=== PATIENT | male | born 1980 | race Two or more races ===

== ENCOUNTER 2018-11-21 23:49 | Emergency (ER) | payer MEDICAID, OTHER ==
[~2018-11-21] VITALS: Ht 162.6 cm; Wt 88.5 kg
[2018-11-22] MEDS ORDERED: ASPIRIN 81 MG TAB.CHEW ONE (00:08)
--- NOTE | 2018-11-22 00:13 | NUR ---
BIBSELF FROM HOME. TO ER BED 1. AAOX4. NAD NOTED, BREATHING EVEN ADN UNLABORED. AMBULATORY. C/O SOB, NUMBESS ON BOTH UPPER EXTREMETIES AND CP. UPON ASSESSMENT, NO S/S OF CC NOTED. MD AT BEDSIDE FOR EVAL. ORDERS RECEIVED
--- NOTE | 2018-11-22 00:15 | NUR ---
IV LINE OBTAINED ON R AC 18G/ BLOOD DRAWN AND GIVEN TO [employer] AT BEDSIDE
[2018-11-22 00:17] LABS: BASOPHILS # (AUTO) 0.1 /CMM (0.0-0.2); BASOPHILS % (AUTO) 0.7 % (0.0-2.0); EOSINOPHILS % (AUTO) 2.5 % (0.0-6.0); HEMATOCRIT 45 % (39-51); HEMOGLOBIN 15.4 g/dL (13.5-17.5); LYMPHOCYTES # (AUTO) 3.2 /CMM (0.8-4.8); LYMPHOCYTES % (AUTO) 41.8 % (20.0-44.0); MEAN CORPUSCULAR HGB CONC 34 g/dl (31.0-36.0); MEAN CORPUSCULAR VOLUME 89 fL (80-96); MONOCYTES # (AUTO) 0.6 /CMM (0.1-1.30); MONOCYTES % (AUTO) 7.5 % (2.0-12.0); NEUTROPHILS # (AUTO) 3.6 /CMM (1.8-8.9); NEUTROPHILS % (AUTO) 47.5 % (43.0-81.0); PLATELET COUNT (AUTO) 265 /CMM (150-450); RED BLOOD CELL COUNT(AUTO) 5.03 MIL/uL (4.5-6.0); WHITE BLOOD COUNT (AUTO) 7.5 K/uL (4.3-11.0)
--- NOTE | 2018-11-22 00:20 | NUR ---
RADIOLOGY AT BEDSIDE
[2018-11-22] MEDS ORDERED: IOHEXOL-350 100 ML VIAL IV ONE (00:27)
[2018-11-22] MEDS ORDERED: IV NS 0.9% 250 ML IV ONE (00:27)
[2018-11-22] MEDS ORDERED: CT SWABBABLE VALVE TRANS SET 1 EA INFUS.SET MC ONE (00:27)
[2018-11-22] MEDS ORDERED: ASPIRIN 81 MG TAB.CHEW PO ONE (00:30)
[2018-11-22 00:40] LABS: B-TYPE NATRIURETIC PEPTIDE 54 PG/ML (0-125); CALCIUM, SERUM 9.7 mg/dL (8.5-10.1); CARBON DIOXIDE 27 mmol/L (21-32); CHLORIDE 105 mmol/L (98-107); CREATININE 1.1 mg/dL (0.6-1.3); GLUCOSE 98 mg/dL (74-106); POTASSIUM 3.9 mmol/L (3.5-5.1); SODIUM SERUM 141 mmol/L (136-145); UREA NITROGEN, BLOOD 17 mg/dL (7-18)
[2018-11-22 02:08] VITALS: BP 119/59
--- NOTE | 2018-11-22 02:09 | NUR ---
IV removed. Catheter intact and site benign. Pressure and 4x4 applied to site. No bleeding noted. Patient discharged to home in stable condition. Written and verbal after care instructions given. Patient verbalizes understanding of instruction. Pt ambulatory with a steady gait
== END 2018-11-22 02:09 | disposition home or self-care (01) ==
LOC: ER 23:52
DX: R06.02 Shortness of breath (principal); R07.89 Other chest pain; Z87.891 Personal history of nicotine dependence; Z98.890 Other specified postprocedural states
CPT/HCPCS: 36415; 71045; 71275; 80048; 83880; 84484; 85025; 93005 ×2; 99284; J7050; Q9967

== ENCOUNTER 2019-12-12 19:27 | Emergency (ER) | payer SELFPAY ==
[~2019-12-12] VITALS: Ht 167.6 cm; Wt 88.5 kg
[2019-12-12 20:10] VITALS: BP 125/77
--- NOTE | 2019-12-12 20:11 | NUR ---
URINE COLLECTED AND SENT TO LAB
--- NOTE | 2019-12-12 20:25 | NUR ---
CALLED PT TO BE PLACED IN ROOM, NO ANSWER
[2019-12-12] MEDS ORDERED: KETOROLAC TROMETHAMINE INJ 30 MG/ML VIAL ONE (20:59)
[2019-12-12] MEDS ORDERED: KETOROLAC TROMETHAMINE INJ 60 MG/2 ML VIAL IM ONE (21:00)
== END 2019-12-12 21:13 | disposition home or self-care (01) ==
LOC: ER 19:30
DX: S33.5XXA Sprain of ligaments of lumbar spine, initial encounter (principal); M54.41 Lumbago with sciatica, right side; Z98.890 Other specified postprocedural states; X50.1XXA Overexertion from prolonged static or awkward postures, initial encounter; Y93.89 Activity, other specified; Y92.89 Other specified places as the place of occurrence of the external cause; Y99.8 Other external cause status
CPT/HCPCS: 96372; 99283; J1885

== ENCOUNTER 2020-07-29 10:59 | Emergency (ER) | payer SELFPAY ==
[~2020-07-29] VITALS: Ht 162.6 cm; Wt 88.5 kg
--- NOTE | 2020-07-29 11:10 | NUR ---
BIB SELF C/O BLOOD IN THE STOOL STARTED LAST NIGHT. THE PATIENT C/O ABDOMINAL PAIN 05/21. DENIES NAUSEA/VOMITING. ABDOMEN SOFT AND NON-DISTENDED. VITAL SIGNS WNL. WARM BLANKET PROVIDED FOR COMFORT. WILL CONTINUE TO MONITOR THE PATIENT.
[2020-07-29 12:39] LABS: BASOPHILS % (AUTO) 0.6 % (0.0-2.0); EOSINOPHILS % (AUTO) 2.5 % (0.0-6.0); HEMATOCRIT 44 % (39-51); HEMOGLOBIN 14.9 g/dL (13.5-17.5); LYMPHOCYTES # (AUTO) 2.1 /CMM (0.8-4.8); LYMPHOCYTES % (AUTO) 30.2 % (20.0-44.0); MEAN CORPUSCULAR HGB CONC 34 g/dl (31.0-36.0); MEAN CORPUSCULAR VOLUME 90 fL (80-96); MONOCYTES # (AUTO) 0.6 /CMM (0.1-1.30); NEUTROPHILS # (AUTO) 4.2 /CMM (1.8-8.9); NEUTROPHILS % (AUTO) 58.7 % (43.0-81.0); PLATELET COUNT (AUTO) 224 /CMM (150-450); WHITE BLOOD COUNT (AUTO) 7.1 K/uL (4.3-11.0)
--- NOTE | 2020-07-29 12:40 | NUR ---
URINE COLLECTED AND SENT TO THE LAB
[2020-07-29 12:48] LABS: CALCIUM, SERUM 8.7 mg/dL (8.5-10.1); POTASSIUM 3.8 mmol/L (3.5-5.1)
[2020-07-29 12:54] LABS: ALBUMIN 3.6 g/dL (3.4-5.0); BILIRUBIN,DIRECT 0.2 mg/dL (0.0-0.2); BILIRUBIN,TOTAL 0.8 mg/dL (0.2-1.0); TOTAL PROTEIN, SERUM 7.4 g/dL (6.4-8.2)
[2020-07-29 13:29] LABS: BILIRUBIN,URINE NEGATIVE (NEGATIVE); COLOR,URINE YELLOW (YELLOW); LEUKOCYTE ESTERASE ,URINE NEGATIVE (NEGATIVE); NITRITE, URINE NEGATIVE (NEGATIVE); PROTEIN,URINE NEGATIVE (NEGATIVE); UGLUCOSE NEGATIVE (NEGATIVE); UROBILINOGEN,URINE 0.2 EU/dL (0.2)
[2020-07-29 13:38] LABS: BACTERIA,URINE None seen /HPF (None Seen); RBC,URINE 0-2 /HPF (0-2); SQUAMOUS EPITHELIAL CELL,UR 0-2 /HPF (None Seen); WBC,URINE NONE SEEN /HPF (0-3)
[2020-07-29] MEDS ORDERED: OMEP20TA20 PO (14:16)
[2020-07-29] MEDS ORDERED: FAMO-131 PO (14:16)
--- NOTE | 2020-07-29 14:22 | NUR ---
Patient discharged to home in stable condition. Written and verbal after care instructions given. Patient verbalizes understanding of instruction. The patient left ER in stable condition.
[2020-07-29 14:23] VITALS: BP 126/84
[2020-07-29] MEDS ORDERED: FAMOTIDINE/PF INJ 20 MG/2 ML VIAL IV ONE (14:30)
[2020-07-29] MEDS ORDERED: LIDOCAINE VISCOUS 2% UD 15 ML UDC MM ONE (14:30)
[2020-07-29] MEDS ORDERED: MAG HYDROX/AL HYDROX/SIMETH 30 ML UDC PO ONE (14:30)
== END 2020-07-29 14:23 | disposition home or self-care (01) ==
LOC: ER 11:01
DX: K92.2 Gastrointestinal hemorrhage, unspecified (principal); K20.90 Esophagitis, unspecified without bleeding; Z98.890 Other specified postprocedural states
CPT/HCPCS: 36415; 80048-TC; 80076-TC; 81001; 83690-TC; 85025-TC

== ENCOUNTER → 2020-12-09 | Emergency (ER) | payer MEDICAID ==
[~2020-12-09] VITALS: Ht 165.1 cm; Wt 83.0 kg
[~2020-12-09] MED LIST: FAMO-131 PO; HYDR-4303 PO; HYDROCODONE/APAP 5/325MG TABLET ONE; HYDROCODONE/APAP 5/325MG TABLET PO ONE; IBUP-1955 PO; OMEP20TA20 PO; ONDANSETRON 4 MG TAB.RAPDIS ONE; ONDANSETRON 4 MG TAB.RAPDIS SL ONE
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
--- NOTE | 2020-12-09 23:15 | NUR ---
Patient discharged to home in stable condition. Written and verbal after care instructions given. Patient verbalizes understanding of instruction. Pt ambulatory with a steady gait
--- NOTE | 2020-12-09 23:35 | NUR ---
Patient discharged to home in stable condition. Written and verbal after care instructions given. Patient verbalizes understanding of instruction.
[2020-12-09 23:44] VITALS: BP 122/79
== END | disposition home or self-care (01) ==
LOC: ER 20:57
DX: M25.511 Pain in right shoulder (principal); M54.2 Cervicalgia; M54.5 Low back pain; Z98.890 Other specified postprocedural states; Z79.899 Other long term (current) drug therapy; V49.49XA Driver injured in collision with other motor vehicles in traffic accident, initial encounter; Y93.89 Activity, other specified; Y92.413 State road as the place of occurrence of the external cause; Y99.8 Other external cause status
CPT/HCPCS: 72050; 72110; 72125; 73030; 99284; Q0162